=== PATIENT | male | born 1980 ===

== ENCOUNTER 2020-08-28 07:39 | Outpatient (CLI) | payer OTHER | END 2020-08-28 07:45 | disposition home or self-care (01) | LOC: SONOGRAMA 07:39 | PROVIDERS: ATTEND Pathology Anatomic Pathology & Clinical Pathology | DX: E04.1 Nontoxic single thyroid nodule (principal) ==

== ENCOUNTER 2021-09-19 07:44 | Outpatient (CLI) | payer OTHER | END 2021-09-19 07:49 | disposition home or self-care (01) | LOC: SONOGRAMA 07:44 | PROVIDERS: ATTEND Pathology Anatomic Pathology & Clinical Pathology | DX: E42 Marasmic kwashiorkor (principal) ==